=== PATIENT | female | born 2000 | race Caucasian/White ===

== ENCOUNTER 2023-06-05 20:06 | Emergency (ER) | payer OTHER ==
[2023-06-05] MEDS ORDERED: Proparacaine 0.5% Opth 15 ML BOT ONE (20:33)
== END 2023-06-05 22:52 | disposition home or self-care (01) ==
LOC: ERS 20:06
DX: H10.211 Acute toxic conjunctivitis, right eye (principal)
CPT/HCPCS: 99283